=== PATIENT | male | born 1975 | race Caucasian/White ===

== ENCOUNTER 2021-05-09 12:42 | Emergency (ER) | payer MEDICAID ==
[~2021-05-09] VITALS: Ht 167.6 cm; Wt 68.0 kg
[2021-05-09] MEDS ORDERED: SEROQUEL100 MG PO (13:03)
== END 2021-05-09 14:09 | disposition home or self-care (01) ==
LOC: ED 12:42
DX: M79.661 Pain in right lower leg (principal); M79.662 Pain in left lower leg
CPT/HCPCS: 73590; 99283-25; A9270